=== PATIENT | male | born 1960 | race Caucasian/White ===

== ENCOUNTER 2016-08-09 17:46 | Emergency (ER) | payer OTHER ==
[~2016-08-09] VITALS: Ht 172.7 cm; Wt 99.8 kg
[2016-08-09 17:56] VITALS: BP 138/69
[2016-08-09] MEDS ORDERED: DIAZ5TAB PO (18:11)
[2016-08-09] MEDS ORDERED: KETO10TA PO (18:11)
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
[2016-08-09] MEDS ORDERED: DIAZEPAM 10 MG/2 ML DISP.SYRIN. IM ONE (18:15)
[2016-08-09] MEDS ORDERED: KETOROLAC TROMETHAMINE 60 MG/2 ML SYRINGE. IM ONE (18:15)
== END 2016-08-09 18:45 | disposition home or self-care (01) ==
LOC: ER 17:46
DX: M54.2 Cervicalgia (principal); M47.892 Other spondylosis, cervical region
CPT/HCPCS: 96372; 99284; J1885; J3360

== ENCOUNTER → 2019-02-27 | Day surgery (SDC) | payer OTHER ==
[~2019-02-27] MED LIST: DIAZ5TAB PO; HYDR-3135 PO; HYDROmorphone 2 MG/ML VIAL IV PRN; IV RINGERS,LACTATED 1000ML 1,000 ML IV SCH; KETO10TA PO; MORPHINE SULFATE 2 MG/ML VIAL. IV PRN; ONDANSETRON PF 4 MG/2 ML VIAL. IV PRN; PROCHLORPERAZINE 10 MG/2 ML VIAL. IV PRN; PROPOFOL 40 ML IV ONE; fentaNYL PF VIAL 100 MCG/2 ML VIAL IV PRN
--- NOTE | 2019-02-27 08:09 | CONS ---
DATE OF CONSULTATION: 02/27/2019 GASTROENTEROLOGY CONSULTATION REASON FOR CONSULTATION: Colorectal screening. HISTORY OF PRESENT ILLNESS: This is a 58-year-old male with past medical history significant for ankle surgery and tobaccoism. He is seen for screening colon exam. Bowel habits are regular without diarrhea or constipation. There has been no melena and/or hematochezia. Weight and appetite are stable. No family history of colon cancers elicited, otherwise without additional complaints. PAST MEDICAL/SURGICAL HISTORY: Tobaccoism and status post ankle surgery. ALLERGIES: None. MEDICATIONS: None. SOCIAL HISTORY: He is a smoker and nondrinker. FAMILY HISTORY: Noncontributory. REVIEW OF SYSTEMS: HEENT: There is no decrease in his or visual acuity issues. CARDIAC: No history of hypertension, palpitations, or syncope. PULMONARY: No shortness of breath, productive cough, or asthma. RENAL: No dysuria, frequency, or hematuria. NEUROLOGIC: No stroke, migraine, or neuropathy. PSYCHIATRIC: No mood swings, depression, or insomnia. DERMATOLOGIC: No skin rashes or pruritus. GASTROINTESTINAL: See history of present illness. HEMATOLOGIC: No bleeding, bruising, or coagulopathy. ENDOCRINE: No history of heat or cold intolerance or thyroid disease. PHYSICAL EXAMINATION: GENERAL: Reveals a well-nourished, well-developed male. VITAL SIGNS: Temperature is 97.3, pulse 62, and respiratory rate is 20. HEENT: Reveals normocephalic and atraumatic head. Pupils and extraocular muscles are not tested. Sclerae are anicteric. NECK: Supple. LUNGS: Clear. CARDIOVASCULAR: Reveals an S1 and S2, without S3 or S4 or appreciable murmur. ABDOMEN: Reveals a soft abdomen, normal bowel sounds, without appreciable hepatosplenomegaly. EXTREMITIES: Reveals no cyanosis, clubbing, or edema. IMPRESSION: Colorectal screening. Risks and benefits of procedure including risk of hemorrhage and perforation have been discussed with the patient and he is willing to proceed. I would like to thank Dr. Rodas for allowing us to consult and participate in this patient's care. JOSE MARTIN ROOT MD DR: JUANJO/rip JOB#: [id number] / [id number] JULIAN Winters MD
[2019-02-27 08:39] VITALS: BP 102/66
--- NOTE | 2019-02-28 17:06 | PATHOLOGY ---
[facility] Accession Number: [id number] . 01 Material submitted: . PART A: colon - SIGMOID POLYPS. Modifiers: sigmoid PART B: rectum - RECTAL POLYP . 01 Clinical history: . Screening colonoscopy . 02 Diagnosis: A. Colon biopsies, sigmoid polyps: - Tubular adenoma (1). - Hyperplastic polyp (1). . B. Colorectal biopsy, rectal polyp: - Tubular adenoma. (JPM:[facility] 02/28/2019) P/02/28/2019 . 02 Comment: There is no high-grade dysplasia or evidence of malignancy. (JPM:[facility] 02/28/2019) . 02 Electronically signed: . Papa Dudley MD, Pathologist NPI- [id number] . 01 Gross description: . A. Received in formalin labeled "Tom, Josh, sigmoid polyps," are 2 segments of abad soft tissue measuring 1.0 x 0.3 x 0.3 cm in aggregate dimensions and measuring 0.5 cm each in maximum dimension. The specimen is submitted entirely in cassette A1. . B. Received in formalin labeled "Tom, Josh, rectal polyp," is a single segment of abad soft tissue measuring 0.6 cm in maximum dimension. The specimen is entirely submitted in cassette B1. ([facility]; 02/27/2019) TOB/TOB . 02 Pathologist provided ICD-10: D12.5, K63.5, D12.8, Z12.11 . 02 CPT . 922850, 007443 Specimen Comment: A courtesy copy of this report has been sent to Specimen Comment: [phone], . Specimen Comment: Report sent to / DR RAMOS Performed at: [address] [place] [address] [facility] [address], [place], [place] [id number] MD Rick Renee MD Phone: [phone] Performed at: [address] [id number] MD Papa Dudley MD Phone: [phone]
== END ==
LOC: ENDOS 06:05
PROVIDERS: ATTEND Internal Medicine Gastroenterology
DX: Z12.11 Encounter for screening for malignant neoplasm of colon (principal); K63.5 Polyp of colon; K62.1 Rectal polyp; D12.5 Benign neoplasm of sigmoid colon; K64.0 First degree hemorrhoids
CPT/HCPCS: 45385; 88305; J2704; 45380

== ENCOUNTER → 2020-07-07 | Outpatient (CLI) | payer MEDICAID ==
[2019-02-27 08:39] VITALS: BP 102/66
[~2020-07-07] MED LIST changes: -HYDROmorphone 2 MG/ML VIAL IV PRN; -IV RINGERS,LACTATED 1000ML 1,000 ML IV SCH; -MORPHINE SULFATE 2 MG/ML VIAL. IV PRN; -ONDANSETRON PF 4 MG/2 ML VIAL. IV PRN; -PROCHLORPERAZINE 10 MG/2 ML VIAL. IV PRN; -PROPOFOL 40 ML IV ONE; -fentaNYL PF VIAL 100 MCG/2 ML VIAL IV PRN
== END ==
LOC: LAB 13:42
PROVIDERS: ATTEND Internal Medicine Critical Care Medicine
DX: Z01.812 Encounter for preprocedural laboratory examination (principal); R91.1 Solitary pulmonary nodule; Z20.828 Contact with and (suspected) exposure to other viral communicable diseases
CPT/HCPCS: U0003

== ENCOUNTER → 2020-07-09 | Day surgery (SDC) | payer MEDICAID ==
[~2020-07-09] MED LIST changes: +ALBUTEROL SULFATE 2.5 MG/3 ML NEBU. ONE; +EPINEPHrine 1 MG/ML VIAL ONE; +GABA300C9 PO; +IV RINGERS,LACTATED 1000ML 1,000 ML IV SCH; +KETOROLAC 30 MG/ML VIAL. IVP ONE; +KETOROLAC 30 MG/ML VIAL. ONE; +LIDO:MAALOX 1:1 20 ML SINGLE DOSE. SWSW STA; +LIDOCAINE 1% Multi-Dose 20 ML VIAL. ONE; +LIDOCAINE 2% VISCOUS 100 ML BOTTLE. ONE; +LIDOCAINE 2% VISCOUS for RT 15 ML SOLUTION. ONE; +LIDOCAINE 4% TOPICAL 50 ML SOLUTION. ONE; +METF500T16 PO; +PROPOFOL 10 MG/ML (20ML) VIAL. IV ONE; +ROSU20TA28 PO; +TIOT18CA INH; +fentaNYL PF VIAL 100 MCG/2 ML VIAL ONE
[2020-07-09 14:02] VITALS: BP 126/67
--- NOTE | 2020-07-09 14:15 | RAD ---
EXAM: PORTABLE CHEST 1V INDICATION: Reason: SHORT OF BREATH AFTER BRONCHOSCOPY / Spl. Instructions: / History: . TECHNIQUE: Single view COMPARISON: None FINDINGS: The heart size is normal. The great vessels appear unremarkable. There is no hilar or mediastinal mass. No evidence of pneumomediastinum. lungs show left greater than right bibasilar reticular densities. No focal consolidation. Right midlung 5mm noncalcified nodule There is no pleural effusion or pneumothorax. There are no significant osseous abnormalities. IMPRESSION: Reticular densities of the lungs bilaterally at the bases are nonspecific and could reflect atelectatic changes. No focal parenchymal lung consolidation and no pneumothorax or evidence of pneumomediastinum. Electronically signed by: Rosangela Neumann MD (07/09/2020 2:07 PM) [id number]
--- NOTE | 2020-07-09 15:38 | EKG ---
[facility] [address] [place] [address] Test Date: 2020-07-09 Test Time: 13:36:18 Pat Name: JASON FERRERA Department: Room: Gender: M Client Service Representative: SULAIMAN : 1960 Requested By: BELINDA GLYNN Order Number: [id number] Reading MD: Measurements Intervals [place] Rate: 97 P: 54 NV: 170 QRS: 59 QRSD: 76 T: 74 QT: 340 QTc: 436 Interpretive Statements SINUS RHYTHM NO SPECIFIC ECG ABNORMALITIES RI6.02 No previous ECG available for comparison
--- NOTE | 2020-07-09 15:55 | OP ---
DATE OF SURGERY: 07/09/2020 ATTENDING PHYSICIAN: Mauricio Rodas MD PROCEDURE: Bronchoscopy, bronchoalveolar lavage. INDICATIONS: The patient with persistent abnormal CT, undergoing diagnostic bronchoscopy. Risks, benefits, and alternatives reviewed with the patient, he consented. SEDATION: Please see Anesthesia's notes. DESCRIPTION OF PROCEDURE: Timeout was performed prior to sedation. O2 saturation and vital signs were maintained within normal limits throughout the procedure. The bronchoscope was passed through the right naris. The vocal cords were identified moving bilaterally without any dysfunction. The vocal cords were anesthetized with a total of 5 mL of 4% lidocaine. The bronchoscope was then passed through the vocal cords into the proximal trachea, which was normal. The distal trachea was likewise normal. The right and left segments and subsegments were all visualized. There was no endobronchial lesion. There was minimal amount of secretions. The scope was then wedged into the right middle lobe segment and a lavage was performed. The return was clear. FINDINGS: 1. Normal vocal cords. 2. No endobronchial lesion. 3. BAL performed, we will await the results. The patient tolerated procedure well with no immediate complication. He will follow up with me in the office next week. BELINDA GLYNN MD DR: ALFREDO/rip JOB#: [id number] / [id number]
--- NOTE | 2020-07-10 16:45 | PATHOLOGY ---
Note [facility] Accession Number: [id number] TESTS RESULT FLAG UNITS REF RANGE LAB Clinician Provided Cytology Information No. of containers..01 Other (Miscellaneous) Source: RML BAL DIAGNOSIS: RML BAL NEGATIVE FOR MALIGNANT CELLS. BRONCHIAL EPITHELIAL CELLS, PULMONARY MACROPHAGES, MUCIN, AND INFLAMMATORY CELLS PRESENT. SILVER METHENAMINE STAINED SMEARS ARE NEGATIVE FOR PNEUMOCYSTIS JIROVECI. NO FUNGAL ORGANISMS ARE PRESENT. THIS INTERPRETATION INCLUDES EVALUATION OF A CELL BLOCK. Signed out by: 02 Papa Dudley MD, Pathologist NPI- [id number] Performed by: Mitali Mccarthy, [employer] ([facility]) Gross description: 01 5ML, RED, 1TP 1CB /LCS 07/09/2020 1827 Local FLAG LEGEND: L-Low Normal,H-High Normal,LL-Alert Low,HH-Alert High <-Panic Low,>-Panic High,A-Abnormal,AA-Critical Abnormal Performed at: [facility] [place] [address] [place] [address] Jose Rubin MD, 02 [facility] [address] [place] [address] Papa Dudley MD, Specimen Comment: A courtesy copy of this report has been sent to [phone], [phone]- Specimen Comment: [id number] Specimen Comment: Report sent to DR GLYNN / DR JIMENEZ Performed at: 01 [facility] [address], [place], [place] [id number] MD Jose Rubin MD Phone: [phone]
== END | disposition home or self-care (01) ==
LOC: SURG 12:00
PROVIDERS: ATTEND Internal Medicine Pulmonary Disease
DX: R91.8 Other nonspecific abnormal finding of lung field (principal); J44.9 Chronic obstructive pulmonary disease, unspecified; E78.00 Pure hypercholesterolemia, unspecified; M19.90 Unspecified osteoarthritis, unspecified site; E11.9 Type 2 diabetes mellitus without complications; F17.210 Nicotine dependence, cigarettes, uncomplicated; Z90.49 Acquired absence of other specified parts of digestive tract; Z98.890 Other specified postprocedural states; Z72.89 Other problems related to lifestyle; Z79.84 Long term (current) use of oral hypoglycemic drugs; Z79.899 Other long term (current) drug therapy
CPT/HCPCS: 31624; 71045; 87070; 87102; 87116; 87205; 87252; 87801; 88112; 88305; 88312; 93005; J1885; J2704; J3490; J7613; J0171; J3010

== ENCOUNTER 2020-08-17 15:30 | Emergency (ER) | payer MEDICAID ==
[~2020-08-17] VITALS: Ht 170.2 cm; Wt 90.9 kg
[~2020-08-17 15:30] MED LIST changes: -ALBUTEROL SULFATE 2.5 MG/3 ML NEBU. ONE; -EPINEPHrine 1 MG/ML VIAL ONE; -IV RINGERS,LACTATED 1000ML 1,000 ML IV SCH; -KETOROLAC 30 MG/ML VIAL. IVP ONE; -KETOROLAC 30 MG/ML VIAL. ONE; -LIDO:MAALOX 1:1 20 ML SINGLE DOSE. SWSW STA; -LIDOCAINE 1% Multi-Dose 20 ML VIAL. ONE; -LIDOCAINE 2% VISCOUS 100 ML BOTTLE. ONE; -LIDOCAINE 2% VISCOUS for RT 15 ML SOLUTION. ONE; -LIDOCAINE 4% TOPICAL 50 ML SOLUTION. ONE; -PROPOFOL 10 MG/ML (20ML) VIAL. IV ONE; -fentaNYL PF VIAL 100 MCG/2 ML VIAL ONE
[2020-08-17 15:52] VITALS: BP 154/93
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
== END 2020-08-17 16:22 | disposition home or self-care (01) ==
LOC: ER 15:30
DX: Z59.0 Homelessness (principal); G89.29 Other chronic pain; J44.9 Chronic obstructive pulmonary disease, unspecified
CPT/HCPCS: 99282

== ENCOUNTER 2020-10-22 20:13 | Emergency (ER) | payer MEDICAID ==
[~2020-10-22] VITALS: Ht 170.2 cm; Wt 99.0 kg
[2020-10-22 20:37] VITALS: BP 132/100
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
[2020-10-22] MEDS ORDERED: CLIN150C15 PO (23:00)
[2020-10-22] MEDS ORDERED: CLINDAMYCIN HCL 150 MG CAPSULE. PO ONE (23:15)
== END 2020-10-22 23:22 | disposition home or self-care (01) ==
LOC: ER 20:13
DX: L02.511 Cutaneous abscess of right hand (principal); R21 Rash and other nonspecific skin eruption; R60.0 Localized edema; J44.9 Chronic obstructive pulmonary disease, unspecified; G89.29 Other chronic pain; Z90.49 Acquired absence of other specified parts of digestive tract; Z90.89 Acquired absence of other organs; Z98.890 Other specified postprocedural states
CPT/HCPCS: 99283

== ENCOUNTER 2021-05-26 05:11 | Emergency (ER) | payer MEDICAID ==
[~2021-05-26] VITALS: Ht 172.7 cm; Wt 95.5 kg
[~2021-05-26 05:11] MED LIST changes: +CLIN150C16 PO
[2021-05-26 06:14] VITALS: BP 117/78
--- NOTE | 2021-05-26 06:54 | RAD ---
EXAMINATION: XR SHOULDER_RIGHT 2+ VIEWS CLINICAL HISTORY: Right shoulder pain TECHNIQUE: XR SHOULDER_RIGHT 2+ VIEWS COMPARISON: None FINDINGS/ IMPRESSION: Glenohumeral joint alignment maintained with anterior inferior marginal osteophytes. Mild hypertrophi c acromioclavicular degenerative changes. No acute fracture. Electronically signed by: Memo De La O DO (05/26/2021 6:52 AM) [facility]
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
== END 2021-05-26 07:05 | disposition home or self-care (01) ==
LOC: ER 05:11
DX: M25.511 Pain in right shoulder (principal); J44.9 Chronic obstructive pulmonary disease, unspecified; F17.200 Nicotine dependence, unspecified, uncomplicated
CPT/HCPCS: 73030; 99283

== ENCOUNTER → 2021-06-10 | Outpatient (CLI) | payer MEDICAID ==
[2021-05-26 06:14] VITALS: BP 117/78
--- NOTE | 2021-06-10 14:33 | KCIC ---
Examination: MRI of the right shoulder without contrast HISTORY: History of right shoulder pain COMPARISON: None TECHNIQUE: Multiplanar, multisequence MR imaging of the right shoulder performed without contrast. FINDINGS: The long head of the biceps tendon within the bicipital groove. The attachment of the long head the b iceps tendon to the superior labral anchor grossly appears intact. The attachment of the subscapulari s tendon, supraspinatus, infraspinatus tendon grossly appears intact. The muscle bulk grossly appears unremarkable. There is a multiloculated cystic structure extending medially and inferiorly from the anterior inferior labrum could be paralabral cyst or ganglion cyst measuring about 5.6 cm, partially visualized. Is difficult to differentiate from a vascular structure. The acromion is type II downsloping. There is moderate increased T2 signal/edema identified in the ac romion clavicular joint likely injury/tear of the superior and inferior acromioclavicular ligaments. There is obscuration of fat in the rotator interval. Moderate degenerative changes acromioclavicular joint, glenohumeral joint. IMPRESSION: 1. Moderate increased T2 signal/edema identified in the acromioclavicular joint likely injury/tear o f the superior and inferior acromioclavicular ligaments. 2. There is a multiloculated cystic structure extending medially and inferiorly from the anterior in ferior labrum could be paralabral cyst or ganglion cyst measuring about 5.6 cm, partially visualized. This is difficult to differentiate from a vascular structure. Consider MRI upper arm for better eval uation. 3. There is obscuration of fat in the rotator interval. Correlate for adhesive capsulitis. Electronically signed by: David Anthony MD (06/10/2021 2:31 PM) [id number]
== END ==
LOC: KCIC MRI 09:11
PROVIDERS: ATTEND Internal Medicine
DX: S49.91XD Unspecified injury of right shoulder and upper arm, subsequent encounter (principal); Z09 Encounter for follow-up examination after completed treatment for conditions other than malignant neoplasm; M75.01 Adhesive capsulitis of right shoulder; R26.81 Unsteadiness on feet; W19.XXXD Unspecified fall, subsequent encounter
CPT/HCPCS: 73221

== ENCOUNTER → 2021-06-17 | Outpatient (CLI) | payer MEDICAID ==
[2021-05-26 06:14] VITALS: BP 117/78
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
== END ==
LOC: KCIC MRI 08:25
PROVIDERS: ATTEND Internal Medicine
DX: S49.91XD Unspecified injury of right shoulder and upper arm, subsequent encounter (principal); M75.101 Unspecified rotator cuff tear or rupture of right shoulder, not specified as traumatic; M85.611 Other cyst of bone, right shoulder; M25.511 Pain in right shoulder; R93.6 Abnormal findings on diagnostic imaging of limbs; M75.01 Adhesive capsulitis of right shoulder; X58.XXXA Exposure to other specified factors, initial encounter; Y93.89 Activity, other specified; Y92.89 Other specified places as the place of occurrence of the external cause; Y99.8 Other external cause status
CPT/HCPCS: 73218; 82565

== ENCOUNTER 2021-08-25 19:16 | Emergency (ER) | payer MEDICAID ==
[~2021-08-25] VITALS: Ht 180.3 cm; Wt 86.4 kg
--- NOTE | 2021-08-25 21:33 | RAD ---
EXAMINATION: Chest radiograph. VIEWS: 1 COMPARISON: 07/09/2020 INDICATION:61 years, Male, cough. FINDINGS: Normal cardiomediastinal silhouette. Multifocal bilateral perihilar opacities. No pleural effusion or pneumothorax. No acute osseous process. IMPRESSION: Multifocal bilateral perihilar opacities, suspicious for multifocal pneumonia. Other differential con sideration is pulmonary edema. Clinical correlation is advised. Electronically signed by: Taylor Vallejo MD (08/25/2021 9:31 PM) [facility]
[2021-08-25 21:39] LABS: INFLUENZA A PATIENT NEGATIVE (NEGATIVE); INFLUENZA B PATIENT NEGATIVE (NEGATIVE)
[2021-08-25 22:15] VITALS: BP 119/54
[2021-08-25] MEDS ORDERED: cefTRIAXone IM 1 GM VIAL IM ONE (22:15)
[2021-08-25] MEDS ORDERED: BENZ-8 PO (22:43)
[2021-08-25] MEDS ORDERED: DOXY100T PO (22:43)
--- NOTE | 2021-08-25 22:43 | PHYS DOC ---
Past Medical History Past Medical History: No Pertinent History, COPD, Diabetes-Type II (predi abetes), Other Additional Past Medical Histor: EMPHYSEMA Past Surgical History: Other Additional Past Surgical Histo: BILATERAL SHOULDERS, LEFT ANKLE AND LEG Smoking Status: Current Every Day Smoker Alcohol Use: None Drug Use: None General Adult EDM: Chief Complaint: FLU SYMPTOM HPI: HPI: Patient is a 61 year old male with history of COPD current smoker, prediabetes, who presents to the ED today complaining of cough, congestion, chills, body aches, diarrhea, symptoms began yesterday. Patient denies any fever. Denies any chest pain or shortness of breath. Denies any abdominal pain. Denies any bloody stools. Denies any nausea or vomiting. Patient said he is unvaccinated against COVID-19. Review of Systems: Review of Systems: Constitutional: Reports body aches and chills Eyes: Denies change in visual acuity. [] HENT: Denies nasal congestion or sore throat. [] Respiratory: Reports cough, denies shortness of breath. [] Cardiovascular: Denies chest pain or edema. [] GI: Reports diarrhea. Denies abdominal pain, nausea, vomiting, bloody stools : Denies dysuria. [] Musculoskeletal: Denies back pain or joint pain. [] Integument: Denies rash. [] Neurologic: Denies headache, focal weakness or sensory changes. [] Endocrine: Denies polyuria or polydipsia. [] Lymphatic: Denies swollen glands. [] Psychiatric: Denies depression or anxiety. [] Heart Score: C/O Chest Pain: N/A Risk Factors: Risk Factors: DM, Current or recent (<one month) smoker, HTN, HLP, family history of CAD, obesity. Risk Scores: Score 0 - 3: 2.5% MACE over next 6 weeks - Discharge Home Score 4 - 6: 20.3% MACE over next 6 weeks - Admit for Clinical Observation Score 7 - 10: 72.7% MACE over next 6 weeks - Early Invasive Strategies Current Medications: Current Medications Medications (Trade) Dose Ordered Sig/Pantera Start Time Stop Time Status Last Admin Dose Admin Ceftriaxone Sodium (Rocephin Im) 1 gm 1X ONCE 08/25/21 22:15 08/25/21 22:16 DC 08/25/21 22:15 1 GM Allergies: Allergies: Allergies Coded Allergies Type Severity Reaction Last Updated Verified No Known Drug Allergies 02/27/19 No Physical Exam: PE: Constitutional: Well developed, well nourished, no acute distress, non-toxic appearance. [] HENT: Normocephalic, atraumatic, bilateral external ears normal, oropharynx moist, no oral exudates, nose normal. [] Eyes: PERRLA, EOMI, conjunctiva normal, no discharge. [] Neck: Normal range of motion, no tenderness, supple, no stridor. [] Cardiovascular:Heart rate regular rhythm, no murmur [] Lungs & Thorax: Bilateral breath sounds clear to auscultation [] Abdomen: Bowel sounds normal, soft, no tenderness, no masses, no pulsatile masses. [] Skin: Warm, dry, no erythema, no rash. [] Back: No tenderness, no CVA tenderness. [] Extremities: No tenderness, no cyanosis, no clubbing, ROM intact, no edema. [] Neurologic: Alert and oriented X 3, normal motor function, normal sensory function, no focal deficits noted. [] Psychologic: Affect normal, judgement normal, mood normal. [] Current Patient Data: Labs: Laboratory Tests Test 08/25/21 21:15 Influenza Type A Antigen Negative (NEGATIVE) Influenza Type B Antigen Negative (NEGATIVE) SARS-CoV-2 Antigen (Rapid) Negative (NEGATIVE) Vital Signs: Vital Signs Date Time Temp Pulse Resp B/P (MAP) Pulse Ox O2 Delivery O2 Flow Rate FiO2 08/25/21 22:06 98.8 83 19 125/58 (80) 96 Room Air 98.8 EKG: EKG: [] Radiology/Procedures: Radiology/Procedures: [] Course & Med Decision Making: Course & Med Decision Making Pertinent Labs and Imaging studies reviewed. (See chart for details) This is a 61-year-old male patient presented to the ED today with complaints of cough, congestion, chills, body aches, diarrhea. Vitals on arrival to the ED temperature 98.8 heart rate 83, respiration 19 on room air, blood pressure 124/58, O2 sats 96% on room air Negative influenza A&B, negative rapid COVID test. Chest x-ray noted for multifocal pneumonia Patient was discharged on doxycycline. Provided instructions to follow-up with his own PCP in the next 7 days. Quarantine measures discussed as well as the importance of wearing mask around people. Patient was encouraged to consider smoking cessation. Dragon Disclaimer: Dragon Disclaimer: This electronic medical record was generated, in whole or in part, using a voice recognition dictation system. Departure Departure Impression: Primary Impression: Cough Additional Impressions: Pneumonia of both lower lobes Qualified Codes: J18.9 - Pneumonia, unspecified organism Smoking addiction Disposition: HOME / SELF CARE / HOMELESS Condition: STABLE Referrals: JULIAN JIMENEZ MD (PCP) follow up with your doctor in the course of this week Patient Instructions: Cough, Adult, [id number], Pneumonia, Adult, Smoking Cessation, Tips For Success Additional Instructions: Your chest x-ray in the emergency room shows you have multifocal COVID- pneumonia. Please quarantine yourself for 5 days. We sent antibiotics to your pharmacy, take them as prescribed until completed. Consider smoking cessation. Follow-up with your doctor next week Scripts Benzonatate (BENZONATATE) 100 Mg Capsule 1 CAP PO TID, #30 CAP Prov: BRANDON CHAPMAN APRN 08/25/21 Doxycycline Hyclate (DOXYCYCLINE HYCLATE) 100 Mg Tablet 1 TAB PO BID, #14 TAB Prov: BRANDON CHAPMAN APRN 08/25/21 BRANDON CHAPMAN APRN Aug 25, 2021 22:43
--- NOTE | 2021-08-27 15:09 | NUR ---
IP: Attempted to contact pt concerning covid results. No answer, left a voicemail to return the call. Addendum: 08/27/21 at 1541 by SHOSHANA JIMENEZ RN Pt returned the call. Informed him of positive covid test and the need to quarantine for 10 days. Pt verbalized understanding.
== END 2021-08-25 22:55 | disposition home or self-care (01) ==
LOC: ER 19:16
DX: U07.1 COVID-19 (principal); J18.9 Pneumonia, unspecified organism; J44.9 Chronic obstructive pulmonary disease, unspecified; E11.9 Type 2 diabetes mellitus without complications; F17.200 Nicotine dependence, unspecified, uncomplicated
CPT/HCPCS: 71045; 87428; 96372; 99284; J0696; U0003; U0005